=== PATIENT | male | born 1980 | race Caucasian/White ===

== ENCOUNTER 2016-07-31 13:23 | Emergency (ER) | payer BC ==
[2016-07-31 14:13] VITALS: BP 125/84
--- NOTE | 2016-07-31 14:50 | UC ---
Respiratory Complaint HPI - HPI Summary HPI Summary: The patient comes in today for: 1. Right nostril and right side of the head pressure, muffled sound: Onset: 1.5 weeks ago. Not improving. Palliative/provocative: Nothing makes the symptoms better or worse. Quality: He has had problems with pressure of the frontal and maxillary sinuses. Region: Ears, and sinuses. Severity: No pain at this time. Time: Constant. Associated symptoms: He blew his nose and felt something stopped it up. There was crackling of the ear. Rhinitis: Green. Cough: No cough. Fever: None. Upper tooth pain: None. * - History of Current Complaint Chief Complaint: UCEar Stated Complaint: BILATERAL EAR PAIN Time Seen by Provider: 07/31/16 14:43 Hx Obtained From: Patient - Allergies/Home Medications Allergies/Adverse Reactions: Allergies Allergy/AdvReac Type Severity Reaction Status Date / Time Penicillins Allergy Unknown Verified 07/31/16 14:10 Reaction Details Home Medications: Home Medications NK [No Home Medications Reported] 07/31/16 [History Confirmed 07/31/16] PMH/Surg Hx/FS Hx/Imm Hx Previously Healthy: Yes Endocrine History Of: Denies: Diabetes, Thyroid Disease, Hyperthyroidism, Hypothyroidism, Dyslipidemia Cardiovascular History Of: Denies: Cardiac Disorders, Hypertension, Pacemaker/ICD, Myocardial Infarction , Congestive Heart Failure, Atrial Fibrillation, Deep Vein Thrombosis, Bleeding Disorders Respiratory History Of: Denies: COPD, Asthma, Bronchitis, Pneumonia, Pulmonary Embolism GI/ History Of: Denies: Gastroesophageal Reflux, Ulcer, Gastrointestinal Bleed, Gall Bladder Disease, Kidney Stones, Diverticulitis, Renal Disease, Urosepsis Neurological History Of: Denies: TIA, CVA, Dementia, Seizures, Migraine Psychological History Of: Denies: Anxiety, Depression, Bipolar Disorder, Schizophrenia, Post Traumatic Stress Disorder Cancer History Of: Denies: Lung Cancer, Colorectal Cancer, Breast Cancer, Prostate Cancer, Cervical Cancer Other History Of: Negative For: HIV, Hepatitis B, Hepatitis C, Anticoagulant Therapy - Surgical History Surgical History: Yes Surgery Procedure, Year, and Place: T&A, 1986, [place]; Appendectomy, 1981, [place] - Family History Known Family History: Negative: Cardiac Disease, Diabetes - Social History Occupation: Employed Full-time Alcohol Use: None Substance Use Type: None Smoking Status (MU): Light Every Day Tobacco Smoker Type: Smokeless Tobacco Amount Used/How Often: 1/4 can per day Length of Time of Smoking/Using Tobacco: 20 Years - Immunization History Most Recent Influenza Vaccination: Not the 2016/2016 Season Review of Systems Constitutional: Negative Skin: Negative Eyes: Negative ENT: Nasal Discharge Respiratory: Negative Cardiovascular: Negative Gastrointestinal: Negative Genitourinary: Negative All Other Systems Reviewed And Are Negative: Yes Physical Exam Triage Information Reviewed: Yes Appearance: Well-Appearing, No Pain Distress, Well-Nourished Vital Signs: Initial Vital Signs Temp 98.8 F 07/31/16 14:08 Pulse 103 07/31/16 14:08 Resp 16 07/31/16 14:08 BP 125/84 07/31/16 14:08 Pulse Ox 99 07/31/16 14:08 Vital Signs Reviewed: Yes Eyes: Positive: Conjunctiva Clear. Negative: Discharge ENT: Positive: Hearing grossly normal, Other: - Ears: Right: TM rodriguez and translucent. No cerumen; no canal erythema or edema. Left: Canal--no erythema or edema, but there is cerumen blocking full evaluation of the left TM.. Negative: Pharyngeal erythema, Nasal congestion, Nasal drainage, Tonsillar swelling, Tonsillar exudate Dental: Negative: Gross Decay/Caries @, Dental Fracture @ Neck: Positive: Supple, Nontender, No Lymphadenopathy. Negative: Nuchal Rigidity Respiratory: Positive: Lungs clear, No respiratory distress, No accessory muscle use. Negative: Crackles, Wheezing Cardiovascular: Positive: RRR, No Murmur Abdomen Description: Positive: Nontender, No Organomegaly, Soft. Negative: Distended, Guarding Musculoskeletal: Positive: Strength Intact, ROM Intact Neurological: Positive: Alert, Muscle Tone Normal Psychological: Positive: Age Appropriate Behavior, Consolable Skin: Negative: rashes, breakdown UC Diagnostic Evaluation - Laboratory O2 Sat by Pulse Oximetry: 99 Respiratory Course/Dx - Course Course Of Treatment: AFter the left ear was irrigated, the residual cerumen was removed. The TM was rodriguez and translucent with no perforation or redness. Pulse was 90 when taken after the irrigation. - Differential Dx/Diagnosis Provider Diagnoses: Eustachian tube dysfunction, both ears. Discharge - Discharge Plan Condition: Stable Disposition: HOME Patient Education Materials: Eustachian Tube Dysfunction (GEN) Referrals: No Primary Care Phys,NOPCP [Primary Care Provider] - 1 Week (Please see your primary care provider or us again if you are not back to your normal ear function in 1-2 weeks. )
== END 2016-07-31 15:40 | disposition home or self-care (01) ==
LOC: UCCORT 13:23
DX: H69.93 Unspecified Eustachian tube disorder, bilateral (principal); Z88.0 Allergy status to penicillin; F17.210 Nicotine dependence, cigarettes, uncomplicated
CPT/HCPCS: 99202; G0463

== ENCOUNTER 2016-09-13 09:06 | Emergency (ER) | payer BC ==
[2016-09-13 10:28] VITALS: BP 120/75
--- NOTE | 2016-09-13 10:58 | UC ---
Skin Complaint HPI - HPI Summary HPI Summary: PT REMOVED A TICK FROM HIS RIGHT LOWER ABDOMEN YESTERDAY. HE BELIEVES IT WAS ATTACHED ABOUT 24 HOURS. PT STATES HE HAS HAD SEVERAL TICKS ON HIM IN THE PAST. PT WORKS IN THE [employer]. Does not have PCP. This was a large tic, head got stuck and he caused a good amount of trauma trying to dig the head out with tweezers. There is redness around it, but he thinks it's bc of digging around in there with tweezers. Denies fevers, new joint aches, leg weakness, fevers. He has read about tics and lyme a lot. - History of Current Complaint Chief Complaint: UCSkin Time Seen by Provider: 09/13/16 10:29 Stated Complaint: tick bite - Allergy/Home Medications Allergies/Adverse Reactions: Allergies Allergy/AdvReac Type Severity Reaction Status Date / Time Penicillins Allergy Unknown Verified 09/13/16 10:22 Reaction Details Review of Systems Constitutional: Negative Skin: Other - tic bite Rt abdomen. Eyes: Negative ENT: Negative Respiratory: Negative Cardiovascular: Negative Gastrointestinal: Negative Genitourinary: Negative Motor: Negative Neurovascular: Negative Musculoskeletal: Negative Neurological: Negative Psychological: Negative All Other Systems Reviewed And Are Negative: Yes PMH/Surg Hx/FS Hx/Imm Hx Previously Healthy: Yes Endocrine History Of: Denies: Diabetes, Thyroid Disease, Hyperthyroidism, Hypothyroidism, Dyslipidemia Cardiovascular History Of: Denies: Cardiac Disorders, Hypertension, Pacemaker/ICD, Myocardial Infarction , Congestive Heart Failure, Atrial Fibrillation, Deep Vein Thrombosis, Bleeding Disorders Respiratory History Of: Denies: COPD, Asthma, Bronchitis, Pneumonia, Pulmonary Embolism GI/ History Of: Denies: Gastroesophageal Reflux, Ulcer, Gastrointestinal Bleed, Gall Bladder Disease, Kidney Stones, Diverticulitis, Renal Disease, Urosepsis Neurological History Of: Denies: TIA, CVA, Dementia, Seizures, Migraine Psychological History Of: Denies: Anxiety, Depression, Bipolar Disorder, Schizophrenia, Post Traumatic Stress Disorder Cancer History Of: Denies: Lung Cancer, Colorectal Cancer, Breast Cancer, Prostate Cancer, Cervical Cancer Other History Of: Negative For: HIV, Hepatitis B, Hepatitis C, Anticoagulant Therapy - Surgical History Surgical History: Yes Surgery Procedure, Year, and Place: T&A, 1986, [place]; Appendectomy, 1981, [place] - Family History Known Family History: Negative: Cardiac Disease, Diabetes - Social History Alcohol Use: None Substance Use Type: None Smoking Status (MU): Light Every Day Tobacco Smoker Type: Smokeless Tobacco Amount Used/How Often: 1/4 can per day Length of Time of Smoking/Using Tobacco: 20 Years - Immunization History Most Recent Influenza Vaccination: Not the Season Physical Exam Triage Information Reviewed: Yes Appearance: Well-Appearing, No Pain Distress, Well-Nourished Vital Signs: Initial Vital Signs Temp 98.1 F 09/13/16 10:22 Pulse 68 09/13/16 10:22 Resp 17 09/13/16 10:22 BP 120/75 09/13/16 10:22 Pulse Ox 98 09/13/16 10:22 Vital Signs Reviewed: Yes Eye Exam: Normal ENT Exam: Normal Neck exam: Normal Respiratory Exam: Normal Respiratory: Positive: Lungs clear, Normal breath sounds, No respiratory distress Cardiovascular Exam: Normal Cardiovascular: Positive: RRR, No Murmur, Pulses Normal, Brisk Capillary Refill Abdomen Description: Positive: Nontender, Soft Musculoskeletal Exam: Normal Neurological Exam: Normal Psychological Exam: Normal Skin: Positive: Other - Rt andomen with < dime sized area of erythema surrounding central pore where tic was. not bull's eye like. Course/Dx - Course Course Of Treatment: Had long conversation regarding treatment and diagnosis of lyme disease. He has had significant exposure but no s/s lyme over the years. He should establish with a PCP and discuss lyme testing and further management. He chooses not to use DEET bc chemicals. - Differential Diagnoses - Skin Complaint Differential Diagnoses: Tick Born Illness - Diagnoses Provider Diagnoses: tic bite Discharge - Discharge Plan Condition: Stable Disposition: HOME Prescriptions: Doxycycline (Monohydrate) [Adoxa Justin ] 100 mg PO ONCE #2 ml Patient Education Materials: Tick Bite (ED) Referrals: No Primary Care Phys,NOPCP [Primary Care Provider] - Additional Instructions: Follow up with a PCP - we are giving you a list to call. You should consider being tested for lyme because of your significant exposure to tics. If positive b/c of previous exposure, you should have a conversation with your PCP to discuss the risks and benefits of therapy.
== END 2016-09-13 11:24 | disposition home or self-care (01) ==
LOC: UCCORT 09:06
DX: S30.861A Insect bite (nonvenomous) of abdominal wall, initial encounter (principal); W57.XXXA Bitten or stung by nonvenomous insect and other nonvenomous arthropods, initial encounter; Y93.89 Activity, other specified; Y92.821 Forest as the place of occurrence of the external cause; Y99.0 Civilian activity done for income or pay; Z88.0 Allergy status to penicillin; F17.220 Nicotine dependence, chewing tobacco, uncomplicated
CPT/HCPCS: 99212; G0463

== ENCOUNTER 2017-01-21 09:20 | Emergency (ER) | payer BC ==
[2017-01-21 09:48] VITALS: BP 131/80
[2017-01-21] MEDS ORDERED: Tetracaine 0.5% OPTH.SOL 4 ML* 1 DROP BTL LEFT EYE ONE (10:44)
[2017-01-21] MEDS ORDERED: Fluorescein Sodium TOPICAL* 1 MG TEST OPHTHALMIC ONE (10:44)
[2017-01-21] MEDS ORDERED: Eye Irrigation Solution 30 ML BOTTLE LEFT EYE ONE (10:44)
[2017-01-21] MEDS ORDERED: Tobramycin 0.3% OPHTH.OINT* 3.5 GM TUBE (OPTH OINTMENT) LEFT EYE ONE (11:22)
[2017-01-21] MEDS ORDERED: Tetan/Diph/Pertus SYR(Tdap)* 0.5 ML SYR(BOOSTRIX) use SYR IM ONE (11:22)
--- NOTE | 2017-01-21 11:32 | UC ---
Eye Complaint HPI - HPI Summary HPI Summary: WORKS A FORESTER, OFTEN GETS THINGS IN EYES. YESTERDAY FEELS LIKE HE HAS FB IN LEFT EYE, WEARS CONTACTS. TOOK CONTACTS OUT, IRRITATION IN EYE, TODAY IRRITATION AND SWELLING IN LEFT EYELID. NO FEVER. NO CHANGE OF VISION. 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 Onset/Duration: Sudden Onset, Lasting Days, Still Present Timing: Days Severity Initially: Mild Severity Currently: Moderate Location of Injury: Conjunctiva, Eye Lid (upper) Character: Dull, Foreign Body Sensation Alleviating Factor(s): Nothing Associated Signs And Symptoms: Positive: Drainage (Clear), Swelling - LEFT SUPERIOR EYELID Related History: Foreign Body - Risk Factors Penetrating Injury Risk Factor: Negative Acute Glaucoma Risk Factors: Eye Trauma Optic Artery Occlusion Risk Factors: Negative - Allergies/Home Medications Allergies/Adverse Reactions: Allergies Allergy/AdvReac Type Severity Reaction Status Date / Time Penicillins Allergy Unknown Verified 01/21/17 09:48 Reaction Details PMH/Surg Hx/FS Hx/Imm Hx Previously Healthy: Yes Other History Of: Negative For: HIV, Hepatitis B, Hepatitis C, Anticoagulant Therapy - Surgical History Surgical History: Yes Surgery Procedure, Year, and Place: T&A, 1986, [place]; Appendectomy, 1981, [place] - Family History Known Family History: Negative: Cardiac Disease, Diabetes - Social History Occupation: Employed Full-time Lives: With Family Alcohol Use: None Substance Use Type: None Smoking Status (MU): Former Smoker Type: Smokeless Tobacco Amount Used/How Often: 1/4 can per day Length of Time of Smoking/Using Tobacco: 20 Years - Immunization History Most Recent Influenza Vaccination: Not the 2016/2016 Season Most Recent Tetanus Shot: UNKNOWN Review of Systems Constitutional: Negative Skin: Negative Eyes: Drainage, Eye Redness ENT: Negative Respiratory: Negative Cardiovascular: Negative Gastrointestinal: Negative Genitourinary: Negative Motor: Negative Neurovascular: Negative Musculoskeletal: Negative Neurological: Negative Psychological: Negative Is Patient Immunocompromised?: No All Other Systems Reviewed And Are Negative: Yes Physical Exam Triage Information Reviewed: Yes Appearance: Well-Appearing, No Pain Distress, Well-Nourished Vital Signs: Initial Vital Signs Temp 98.5 F 01/21/17 09:43 Pulse 80 01/21/17 09:43 Resp 16 01/21/17 09:43 BP 131/80 01/21/17 09:43 Pulse Ox 100 01/21/17 09:43 Vital Signs Reviewed: Yes Eyes: Positive: Conjunctiva Inflamed, Discharge - CLEAR, Other: - FLUORESCEIN UPTAKE LEFT CORNEA , CIRCULAR 2mm X2mm LESION CENTRALLY AT 8OCLOCK; NO FB DETECTED; LEFT SUPERIOR EYELID BLEPHARITIS ENT: Positive: Normal ENT inspection, TMs normal Dental Exam: Normal Neck exam: Normal Neck: Positive: Supple, Nontender, No Lymphadenopathy Respiratory Exam: Normal Respiratory: Positive: Chest non-tender, Lungs clear, Normal breath sounds, No respiratory distress Cardiovascular Exam: Normal Cardiovascular: Positive: RRR, No Murmur, Pulses Normal Abdominal Exam: Normal Musculoskeletal Exam: Normal Neurological Exam: Normal Psychological Exam: Normal Skin Exam: Normal Eye Complaint Course/Dx - Differential Dx/Diagnosis Differential Diagnosis/HQI/PQRI: Conjunctivitis, Corneal Abrasion Provider Diagnoses: LEFT CORNEAL ABRASION; LEFT SUPERIOR EYELID BLEPHARITIS; LEFT CONJUCTIVITIS Discharge - Discharge Plan Condition: Stable Disposition: HOME Prescriptions: Clindamycin Cap(NF) [Clindamycin Cap 300 mg Cap(NF)] 300 mg PO TID #30 cap Tobramycin 0.3% OPHTH.BO* 1 drop LEFT EYE Q4H #1 btl Patient Education Materials: Corneal Abrasion (ED), Blepharitis (ED) Referrals: [facility] [place] [facility] REFERRAL [Outside] Mary Hoover MD [Medical Doctor] - No Primary Care Phys,NOPCP [Primary Care Provider] - Additional Instructions: PRIMARY CARE: There are four major types of clinical preventive care: immunizations, screening , behavioral counseling (sometimes referred to as lifestyle changes), and chemoprevention. All four apply throughout the life span. It is important to establish and to have access to a Primary Care Physician, not only for follow- up regarding acute and chronic problems, but also for preventative care.
== END 2017-01-21 11:45 | disposition home or self-care (01) ==
LOC: UCCORT 09:20
DX: S05.02XA Injury of conjunctiva and corneal abrasion without foreign body, left eye, initial encounter (principal); H10.502 Unspecified blepharoconjunctivitis, left eye; W45.8XXA Other foreign body or object entering through skin, initial encounter; W22.8XXA Striking against or struck by other objects, initial encounter; Y92.89 Other specified places as the place of occurrence of the external cause; Y99.0 Civilian activity done for income or pay
CPT/HCPCS: 90471; 90715; 99212; A9270-GY; G0463

== ENCOUNTER 2017-09-16 12:52 | Emergency (ER) | payer BC ==
[2017-09-16 13:17] VITALS: BP 131/85
--- NOTE | 2017-09-16 13:46 | UC ---
Gareth Fall Gabriel, scribed for Gloria Estrada MD on 09/16/17 at 1332 . Headache HPI - HPI Summary HPI Summary: This patient is a 36 year old M presenting to [facility] [place] with a chief complaint of a headache that began 2 days ago around noon. He kidd mostly resolved. The patient rates the pain 3/10 in severity. Patient reports sore throat, chills, fatigue, and myalgia. Patient denies ear pain and rash. 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 Pt had a fever that resolved. Pt expresses a lot of concern amount the possibility of Lymes disease and states that his primary concern of the visit today. He has been on the internet a lot recently and is anxious. 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 Pt denies rash. No cp., sob, abd pain. No n/v/d. No rash. No sinus pain, ear pain, sore throat + sick contacts No OTC meds taken Patients medication reviewed this visit. - History Of Current Complaint Chief Complaint: UCHeadache Stated Complaint: HEADACHE,CHILLS Time Seen by Provider: 09/16/17 13:25 Hx Obtained From: Patient Onset/Duration: Lasting Days, Still Present Initially Headache Was: Initial Pain Scale(0-10)= - 3 Currently Pain Is: Current Pain Scale(0-10)= - 3 Pain Intensity: 3 Pain Scale Used: 0-10 Numeric Timing: Constant Associated Signs And Symptoms: Positive: Negative - ear pain and rash, Other ( Noted In Comments) - sore throat, chills, fatigue, and myalgia. - Allergies/Home Medications Allergies/Adverse Reactions: Allergies Allergy/AdvReac Type Severity Reaction Status Date / Time Penicillins Allergy Unknown Verified 09/16/17 13:18 Reaction Details Home Medications: Home Medications NK [No Home Medications Reported] 09/16/17 [History Confirmed 09/16/17] PMH/Surg Hx/FS Hx/Imm Hx Previously Healthy: Yes Other History Of: Negative For: HIV, Hepatitis B, Hepatitis C, Anticoagulant Therapy - Surgical History Surgical History: Yes Surgery Procedure, Year, and Place: T&A, 1986, [place]; Appendectomy, 1981, [place] - Family History Known Family History: Negative: Cardiac Disease, Diabetes - Social History Occupation: Employed Full-time Lives: With Family Alcohol Use: None Substance Use Type: None Smoking Status (MU): Former Smoker Type: Smokeless Tobacco Amount Used/How Often: 1/4 can per day Length of Time of Smoking/Using Tobacco: 20 Years - Immunization History Most Recent Influenza Vaccination: Not the 2015/2016 Season Most Recent Tetanus Shot: UNKNOWN Review of Systems Constitutional: Fever - resovled, Chills, Fatigue ENT: Sore Throat Musculoskeletal: Myalgia Neurological: Headache All Other Systems Reviewed And Are Negative: Yes Physical Exam Triage Information Reviewed: Yes Appearance: Well-Appearing, No Pain Distress, Well-Nourished Vital Signs: Initial Vital Signs Temp 98.8 F 09/16/17 13:13 Pulse 86 09/16/17 13:13 Resp 18 09/16/17 13:13 BP 131/85 09/16/17 13:13 Pulse Ox 100 09/16/17 13:13 Vital Signs Reviewed: Yes Eye Exam: Normal Eyes: Positive: Conjunctiva Clear ENT Exam: Normal ENT: Positive: Normal ENT inspection, Hearing grossly normal, Pharynx normal, TMs normal Dental Exam: Normal Neck exam: Normal Neck: Positive: Supple, Nontender, No Lymphadenopathy Respiratory Exam: Normal Respiratory: Positive: Chest non-tender, Lungs clear, Normal breath sounds, No respiratory distress, No accessory muscle use Cardiovascular Exam: Normal Cardiovascular: Positive: RRR, No Murmur Abdominal Exam: Normal Abdomen Description: Positive: Nontender, No Organomegaly, Soft Bowel Sounds: Positive: Present Musculoskeletal Exam: Normal Musculoskeletal: Positive: Strength Intact Neurological Exam: Normal Psychological Exam: Normal Skin Exam: Normal Headache Course/Dx - Course Course Of Treatment: Pt presents with body aches, fevers sgtarting 2 days ago. Sx markedly improved. Still with my myalgia. Suspect viral syndrome. after discussion - will check lyme, hiv, cbc. cmp. Pt declined analgesia. declined work note. pt comfortable and in agreement with plan - Differential Dx/Diagnosis Provider Diagnoses: myalgia Discharge - Sign-Out/Discharge Documenting (check all that apply): Discharge/Admit/Transfer - Discharge Plan Condition: Stable Disposition: HOME Patient Education Materials: Viral Syndrome (ED), Musculoskeletal Pain (ED) Referrals: No Primary Care Phys,NOPCP [Primary Care Provider] - Additional Instructions: The doctor that evaluated you today thinks your symptoms are related to a virus. Alternate ibuprofen (Advil, Motrin) and Tylenol every 3 hours for pain and fever Stay well hydrated - drink plenty of non-alcoholic, non-caffinated beverages Get plenty of restful sleep You had blood draw today to evaluate for Lyme disease, HIV, liver and kidney numbers. Some of these tests take up to 1 week to come back. A member of the care team will contact you if you need additional treatment. If you develop fevers, vomiting, vision changes, uncontrolled pain or any other concerns you should return here, contact your doctor or go to the emergency department - Billing Disposition and Condition Condition: STABLE Disposition: HOME The documentation as recorded by the Gareth yoder Gabriel accurately reflects the service I personally performed and the decisions made by me, Gloria Estrada MD.
[2017-09-16 18:28] LABS: ABS Basophils 0.1 10^3/ul (0-0.2); ABS Eosinophils 0.1 10^3/ul (0-0.6); ABS Lymphocytes 1.6 10^3/ul (1.0-4.8); ABS Monocytes 1.3 10^3/ul (0-0.8); ABS Neutrophils 7.8 10^3/ul (1.5-7.7); ABS Nucleated RBC 0 10^3/ul; Eosinophil % 0.9 % (0-6); Hematocrit 42 % (42-52); Hemoglobin 14.4 g/dl (14.0-18.0); Lymphocyte % 14.3 % (25-47); Mean Corpuscular HGB Conc 35 g/dl (31-36); Mean Corpuscular Hemoglobin 30 pg (27-31); Mean Corpuscular Volume 87 fL (80-94); Mean Platelet Volume 6.7 um3 (7.4-10.4); Nucleated Red Blood Cells % 0; Platelet Count 313 10^3/ul (150-450); Red Blood Count 4.82 10^6/ul (4.0-5.4); Red Cell Distribution Width 13 % (10.5-15); White Blood Count 10.9 10^3/ul (3.5-10.8)
[2017-09-16 18:40] LABS: EGFR Non-African American 64.6 (>60)
== END 2017-09-16 14:21 | disposition home or self-care (01) ==
LOC: UCEAST 12:52
DX: R51 Headache (principal); J02.9 Acute pharyngitis, unspecified; R68.83 Chills (without fever); R53.83 Other fatigue; M79.1 Myalgia; Z88.0 Allergy status to penicillin; Z87.891 Personal history of nicotine dependence
CPT/HCPCS: 36415; 80053; 85025; 86618; 86703; 87651; 99211; G0463

== ENCOUNTER 2018-11-09 15:00 | Emergency (ER) | payer BC ==
[2018-11-09 15:55] VITALS: BP 113/73
--- NOTE | 2018-11-09 16:24 | UC ---
Skin Complaint HPI - HPI Summary HPI Summary: 37 y/o male presents to the urgent care c/o a small tick on left upper arm, he noticed 2 hours ago. 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 Hx of tick bite in the past. Pt denies fever, KC, joint pain, abdominal pain, N/V/.D. - History of Current Complaint Chief Complaint: UCSkin Time Seen by Provider: 11/09/18 16:21 Stated Complaint: TICK Hx Obtained From: Patient Onset/Duration: Sudden Onset, Lasting Hours - he noticed 2 hrs ago, but is not sure how long it has been there. He is a Forester, Still Present Skin Exposure Onset/Duration: Hours Ago - 2hrs ago Onset Severity: Mild Current Severity: Mild Pain Intensity: 0 Pain Scale Used: 0-10 Numeric Location: Discrete - left upper arm tick Character: Redness Aggravating Factor(s): Touch Alleviating Factor(s): Nothing Associated Signs & Symptoms: Positive: Rash - tick bite on left upper arm Related History: Possible Reaction to: Insect - tick - Allergy/Home Medications Allergies/Adverse Reactions: Allergies Allergy/AdvReac Type Severity Reaction Status Date / Time Penicillins Allergy Unknown Verified 09/16/17 13:18 Reaction Details PMH/Surg Hx/FS Hx/Imm Hx Previously Healthy: Yes - Pt denies PMHX Other History Of: Negative For: HIV, Hepatitis B, Hepatitis C, Anticoagulant Therapy - Surgical History Surgical History: Yes Surgery Procedure, Year, and Place: T&A, 1986, [place]; Appendectomy, 1981, [place] - Family History Known Family History: Positive: None - Pt denies FMHX Negative: Cardiac Disease, Diabetes - Social History Occupation: Employed Full-time Lives: With Family Alcohol Use: None Substance Use Type: None Smoking Status (MU): Former Smoker Type: Smokeless Tobacco Amount Used/How Often: 1/4 can per day Length of Time of Smoking/Using Tobacco: 20 Years - Immunization History Most Recent Influenza Vaccination: Not the 2016/2017 Season Most Recent Tetanus Shot: UNKNOWN Review of Systems All Other Systems Reviewed And Are Negative: Yes Constitutional: Positive: Negative Skin: Positive: Other - tick bite on the left upper arm. tick still present Eyes: Positive: Negative ENT: Positive: Negative Respiratory: Positive: Negative Cardiovascular: Positive: Negative Gastrointestinal: Positive: Negative Genitourinary: Positive: Negative Motor: Positive: Negative Neurovascular: Positive: Negative Musculoskeletal: Positive: Negative Neurological: Positive: Negative Psychological: Positive: Negative Is Patient Immunocompromised?: No Physical Exam - Summary Physical Exam Summary: Vital Signs Reviewed: Yes General: well developed, well nourished male sitting in the examining table w/o any apparent distress. Eyes: Positive: Conjunctiva Clear - PERRLA, EOMI ENT: Positive: Normal ENT inspection, Hearing grossly normal, Pharynx normal, TMs normal Neck: Positive: Supple, Nontender, No Lymphadenopathy Respiratory: Positive: Chest nontender, Lungs clear, Normal breath sounds Cardiovascular: Positive: RRR, No Murmur, Pulses Normal Abdomen Description: Positive: Nontender, No Organomegaly, Soft. Negative: CVA Tenderness (R), CVA Tenderness (L) Bowel Sounds: Positive: Present Musculoskeletal: Positive: Strength Intact, ROM Intact, No Edema Neurological Exam: Normal Psychological Exam: Normal Skin: Positive: rashes - medial aspect of Left upper arm with a small tick with surrounding erythema, non tender to palpation. tick alive, no swelling or drainage observed. Triage Information Reviewed: Yes Vital Signs: Initial Vital Signs Temp 97.8 F 11/09/18 15:49 Pulse 63 11/09/18 15:49 Resp 18 11/09/18 15:49 BP 113/73 11/09/18 15:49 Pulse Ox 99 11/09/18 15:49 Course/Dx - Course Course Of Treatment: 37 y/o male presents to the urgent care c/o a small tick on left upper arm, he noticed 2 hours ago. 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 Hx of tick bite in the past. Pt denies fever, KC, joint pain, abdominal pain, N/V/.D. Hx obtained. Pt w/ medial aspect of Left upper arm with a small tick with surrounding erythema, non tender to palpation. tick alive, no swelling or drainage observed on examination.Tick was removed from lft upper arm using twister technique. After tick removal and the skin cleansing. Antibiotic prophylaxis with Doxycycline given to the patient to prevent lyme Disease.. Pt tolerated well medication. Pt advised to observe the area for the development or Erythema Migrans for upto 30 days following exposure. Advised if he develops fever or erythema Migrans to return to the clinic or PCP for further treatment .Pt understood and agreed with plan of care. - Differential Diagnoses - Skin Complaint Differential Diagnoses: Abscess, Cellulitis, Contact Dermatitis, Local Allergic Reaction, Tick Born Illness - Diagnoses Provider Diagnosis: Tick bite of left upper arm Discharge - Sign-Out/Discharge Documenting (check all that apply): Patient Departure - D/C home All imaging exams completed and their final reports reviewed: No Studies - Discharge Plan Condition: Good Disposition: HOME Patient Education Materials: Tick Bite (ED) Referrals: [facility] [place] [facility] [[place]] - If Needed Master STEWART,Grayson Johns [Medical Doctor] - If Needed Additional Instructions: 1- Please observe the area for the development or Erythema Migrans for upto 30 days following exposure. Components of the tick saliva can cause transient erythema that should not be confused with Erythema Migrans. If you develop the bull's eye rash, fever, joint pains please return to the urgent care or f/u with your PCP or Dr Thao for further management. Apply Bacitracin oint around tick bite as directed 2-Antibiotic prophylaxis with Doxycycline was given to you today to prevent lyme Disease. Lyme serology can be drawn in 2 weeks with your PCP to r/o Lyme disease since there is probability of negative results at early exposure. - Billing Disposition and Condition Condition: GOOD Disposition: Home
[2018-11-09] MEDS ORDERED: DOXYcycline CAP(*) 100 MG PO ONE (16:32)
== END 2018-11-09 16:43 | disposition home or self-care (01) ==
LOC: UCCORT 15:00
DX: T63.481A Toxic effect of venom of other arthropod, accidental (unintentional), initial encounter (principal); Y92.9 Unspecified place or not applicable; Z87.891 Personal history of nicotine dependence
CPT/HCPCS: 99211; A9270-GY; G0463

== ENCOUNTER 2019-02-24 15:29 | Emergency (ER) | payer BC ==
[2019-02-24 16:32] VITALS: BP 113/71
--- NOTE | 2019-02-24 16:50 | UC ---
Skin Complaint HPI - HPI Summary HPI Summary: Patient's 38-year-old male presenting with tick bite to left middle back with tick still attached. Patient states he did not see the tick there yesterday and believes it has been there less than a day. Patient has had multiple tick bites in the past, none of which have been treated for Lyme disease. Patient denies ever being tested for Lyme disease. Patient denies itching or drainage at the site of the tick bite. - History of Current Complaint Chief Complaint: UCBiteInjury Stated Complaint: TICK EMBEDDED IN BACK Hx Obtained From: Patient Pain Intensity: 0 - Allergy/Home Medications Allergies/Adverse Reactions: Allergies Allergy/AdvReac Type Severity Reaction Status Date / Time Penicillins Allergy Unknown Verified 02/24/19 16:28 Reaction Details PMH/Surg Hx/FS Hx/Imm Hx Previously Healthy: Yes Other History Of: Negative For: HIV, Hepatitis B, Hepatitis C, Anticoagulant Therapy - Surgical History Surgical History: Yes Surgery Procedure, Year, and Place: T&A, 1986, [place]; Appendectomy, 1981, [place] - Family History Known Family History: Positive: None - Pt denies FMHX Negative: Cardiac Disease, Diabetes - Social History Alcohol Use: None Substance Use Type: None Smoking Status (MU): Former Smoker Type: Smokeless Tobacco Amount Used/How Often: 1/4 can per day Length of Time of Smoking/Using Tobacco: 1/4 Can Per Day for 25 Years When Did the Patient Quit Smoking/Using Tobacco: 10/16/18 - Immunization History Most Recent Influenza Vaccination: Not the 2015/2016 Season Most Recent Tetanus Shot: 01/21/17 Review of Systems All Other Systems Reviewed And Are Negative: No Constitutional: Positive: Negative Skin: Positive: Other - tick bite Eyes: Positive: Negative Respiratory: Positive: Negative Cardiovascular: Positive: Negative Gastrointestinal: Positive: Negative Neurological: Positive: Negative. Negative: Headache Physical Exam Triage Information Reviewed: Yes Appearance: Well-Appearing, No Pain Distress, Well-Nourished Vital Signs: Initial Vital Signs Temp 97.5 F 02/24/19 16:27 Pulse 76 02/24/19 16:27 Resp 16 02/24/19 16:27 BP 113/71 02/24/19 16:27 Pulse Ox 100 02/24/19 16:27 Vital Signs Reviewed: Yes Eyes: Positive: Conjunctiva Clear ENT: Positive: Hearing grossly normal Neck: Positive: Supple Respiratory: Positive: No respiratory distress Neurological: Positive: Alert Psychological: Positive: Age Appropriate Behavior Skin: Positive: Other - tick noted on left middle back. removed entirely. area of erythema noted where tick was attached. no drainage or blood noted. Course/Dx - Course Course Of Treatment: Patient was educated on tick bite and Lyme disease. He declined prophylactic treatment with doxycycline to prevent Lyme disease. I educated him on s/s to look for within the next month or two and to return or follow up if he has any s /s. Patient voiced understanding and agreed to the treatment plan. - Diagnoses Provider Diagnosis: Tick bite of back Discharge ED - Sign-Out/Discharge Documenting (check all that apply): Patient Departure All imaging exams completed and their final reports reviewed: No Studies - Discharge Plan Condition: Stable Disposition: HOME Patient Education Materials: Tick Bite (ED) Referrals: [facility] [Outside] - If Needed [facility] [place] [facility] [place]] - If Needed Additional Instructions: As discussed, the entire tick was removed from your back today. You declined prophylactic antibiotics to prevent Lyme Disease, so no further treatment is required at this point in time. Follow up with the [facility] or the Physician Referral if you experience weakness, severe headache, or a rash where you were the tick bit you. Go to the emergency room if you experience increasing redness, warmth, or drainage to the area. - Billing Disposition and Condition Condition: STABLE Disposition: Home
== END 2019-02-24 17:06 | disposition home or self-care (01) ==
LOC: UCCORT 15:29
DX: S20.462A Insect bite (nonvenomous) of left back wall of thorax, initial encounter (principal); W57.XXXA Bitten or stung by nonvenomous insect and other nonvenomous arthropods, initial encounter; Y92.9 Unspecified place or not applicable; Z88.0 Allergy status to penicillin; Z87.891 Personal history of nicotine dependence
CPT/HCPCS: 99211; G0463